=== PATIENT | male | born 1995 | race Hispanic/Latino ===

== ENCOUNTER 2022-11-19 15:19 | Emergency (ER) | payer OTHER ==
[2022-11-19] MEDS ORDERED: MAXITROL0.1 % OD (17:55)
[2022-11-19 18:04] VITALS: BP 119/82
== END 2022-11-19 18:16 | disposition home or self-care (01) | DRG 125 ==
LOC: ED 15:19
DX: S05.01XA Injury of conjunctiva and corneal abrasion without foreign body, right eye, initial encounter (principal); X58.XXXA Exposure to other specified factors, initial encounter